=== PATIENT | male | born 1945 | race Caucasian/White ===

== ENCOUNTER 2018-11-24 13:51 | Emergency (ER) | payer OTHER ==
[~2018-11-24] VITALS: Ht 160 cm; Wt 88.0 kg
[~2018-11-24 13:51] MED LIST: AMBIEN10 MG; DEPAKOTE ER250 MG; LEVAQUIN750 MG PO; PYRIDIUM DS200 MG PO; REMERON45 MG; SEPTRA DS TABLE1 TAB PO; SEROQUEL XR300 MG
[2018-11-24] MEDS ORDERED: GLUMETZA500 MG (15:22)
[2018-11-24] MEDS ORDERED: COZAAR25 MG (15:22)
== END 2018-11-24 20:09 | disposition home or self-care (01) ==
LOC: ER 13:51
DX: R41.82 Altered mental status, unspecified (principal); T50.994A Poisoning by other drugs, medicaments and biological substances, undetermined, initial encounter; Y92.89 Other specified places as the place of occurrence of the external cause

== ENCOUNTER 2019-01-10 13:49 | Outpatient (CLI) | payer OTHER ==
[~2019-01-10 13:49] MED LIST changes: +COZAAR25 MG; +GLUMETZA500 MG
== END 2019-01-10 13:59 | disposition home or self-care (01) ==
LOC: RAD 501 13:49
DX: M54.2 Cervicalgia (principal)

== ENCOUNTER 2019-01-28 07:28 | Outpatient (CLI) | payer OTHER | END 2019-01-28 15:00 | disposition home or self-care (01) | LOC: LAB 07:28 | DX: I11.9 Hypertensive heart disease without heart failure (principal); E13.9 Other specified diabetes mellitus without complications; E78.2 Mixed hyperlipidemia ==

== ENCOUNTER 2019-02-02 15:54 | Outpatient (CLI) | payer OTHER | END 2019-02-02 15:59 | disposition home or self-care (01) | LOC: RAD 15:54 | DX: M54.5 Low back pain (principal); M17.12 Unilateral primary osteoarthritis, left knee; M54.2 Cervicalgia ==

== ENCOUNTER 2019-02-03 15:04 | Inpatient (IN) | payer OTHER ==
[~2019-02-03] VITALS: Ht 162.6 cm; Wt 74.8 kg
[2019-02-21] MEDS ORDERED: Intestinex CAP PO (11:17)
[2019-02-21] MEDS ORDERED: BUSPIRONE HCL15 MG PO (11:17)
[2019-02-21] MEDS ORDERED: DEPAKOTE ER500 MG PO (11:17)
[2019-02-21] MEDS ORDERED: LISINOPRIL5 MG PO (11:17)
[2019-02-21] MEDS ORDERED: Seroquel PO (11:17)
[2019-02-21] MEDS ORDERED: MYSOLINE50 MG PO (11:17)
[2019-02-21] MEDS ORDERED: FAMOTIDINE20 MG PO (11:17)
== END 2019-04-06 09:15 | DRG 194 ==
LOC: ER 15:04 → MEDJ 02-04 10:20 → MEDI 02-04 10:20 → MEDJ 02-04 11:46
PROVIDERS: ADMIT Internal Medicine
PROC: 3E0F7GC Introduction of Other Therapeutic Substance into Respiratory Tract, Via Natural or Artificial Opening (ICD-10-PCS; principal; 2019-02-04)
PROC: 4A033R1 Measurement of Arterial Saturation, Peripheral, Percutaneous Approach (ICD-10-PCS; 2019-02-04)
PROC: B020ZZZ Computerized Tomography (CT Scan) of Brain (ICD-10-PCS; 2019-02-04)
PROC: BT4JZZZ Ultrasonography of Kidneys and Bladder (ICD-10-PCS; 2019-02-04)
PROC: B246ZZZ Ultrasonography of Right and Left Heart (ICD-10-PCS; 2019-02-04)
PROC: 8E0ZXY6 Isolation (ICD-10-PCS; 2019-02-04)
PROC: 4A12X4Z Monitoring of Cardiac Electrical Activity, External Approach (ICD-10-PCS; 2019-02-04)
DX: J10.08 Influenza due to other identified influenza virus with other specified pneumonia (principal); M62.82 Rhabdomyolysis; N17.8 Other acute kidney failure; T17.820A Food in other parts of respiratory tract causing asphyxiation, initial encounter; N39.0 Urinary tract infection, site not specified; J91.8 Pleural effusion in other conditions classified elsewhere; J69.0 Pneumonitis due to inhalation of food and vomit; E86.0 Dehydration; E87.8 Other disorders of electrolyte and fluid balance, not elsewhere classified; E11.22 Type 2 diabetes mellitus with diabetic chronic kidney disease; E11.65 Type 2 diabetes mellitus with hyperglycemia; I12.9 Hypertensive chronic kidney disease with stage 1 through stage 4 chronic kidney disease, or unspecified chronic kidney disease; N18.2 Chronic kidney disease, stage 2 (mild); Z79.4 Long term (current) use of insulin; F32.89 Other specified depressive episodes; G20 Parkinson's disease; F02.80 Dementia in other diseases classified elsewhere, unspecified severity, without behavioral disturbance, psychotic disturbance, mood disturbance, and anxiety; I70.0 Atherosclerosis of aorta; G93.89 Other specified disorders of brain; G25.0 Essential tremor; J10.1 Influenza due to other identified influenza virus with other respiratory manifestations

== ENCOUNTER 2019-11-21 12:02 | Inpatient (IN) | payer OTHER ==
[~2019-11-21] VITALS: Ht 165.1 cm; Wt 83.9 kg
[~2019-11-21 12:02] MED LIST changes: +BUSPIRONE HCL15 MG PO; +DEPAKOTE ER500 MG PO; +FAMOTIDINE20 MG PO; +Intestinex CAP PO; +LISINOPRIL5 MG PO; +MYSOLINE50 MG PO; +Seroquel PO
--- NOTE | 2019-11-21 12:17 | NUR ---
SE RECIBE PTE ACOMAPANDO DE FAMILIAR EN AMBULANCIA. PTE CON ABCESO EN ESPALDA. SE MIDEN S/V A PTE Y SE COLOCA EN AREA DE OBSERVACION.
--- NOTE | 2019-11-21 17:18 | NUR ---
PT ALERTA Y ORIENTADO X3 ESFERAS SE LE ORIENTA SOBRE TX Y REFIERE ENTEDER. SE DONATO MUESTRAS DE SAHIL Y VENOPUNCION CON TECNICAS ASEPTICAS. SE ADMINSITRAN MEDICAMENTO ORDENADOS. PT TOL[place]. PT MANEJADO POR MS Miguel/JONATHON.
[2019-12-02] MEDS ORDERED: SINEMET 25-1001 EACH PO (11:50)
[2019-12-02] MEDS ORDERED: Seroquel PO (11:50)
[2019-12-02] MEDS ORDERED: VANCOMYCIN HCL125 MG PO (11:50)
[2019-12-02] MEDS ORDERED: POM (MEDICAMENTO EN PO (11:50)
[2019-12-02] MEDS ORDERED: DEPAKOTE ER500 MG PO (11:50)
[2019-12-02] MEDS ORDERED: MONODOX100 MG PO (11:50)
[2019-12-02] MEDS ORDERED: MYSOLINE50 MG PO (11:50)
[2019-12-02] MEDS ORDERED: INTESTINEX680 M1 PO (11:50)
== END 2019-12-02 18:51 | DRG 580 ==
LOC: ER 12:02 → SEC-K 17:31 → MEDJ 17:31
PROVIDERS: ADMIT Internal Medicine
PROC: 0W9K00Z Drainage of Upper Back with Drainage Device, Open Approach (ICD-10-PCS; 2019-11-21)
PROC: 8E0ZXY6 Isolation (ICD-10-PCS; 2019-11-22)
PROC: 0J970ZZ Drainage of Back Subcutaneous Tissue and Fascia, Open Approach (ICD-10-PCS; principal; 2019-11-30)
DX: L03.312 Cellulitis of back [any part except buttock and flank] (principal); F32.0 Major depressive disorder, single episode, mild; L02.212 Cutaneous abscess of back [any part, except buttock and flank]; B95.61 Methicillin susceptible Staphylococcus aureus infection as the cause of diseases classified elsewhere; G20 Parkinson's disease; F02.80 Dementia in other diseases classified elsewhere, unspecified severity, without behavioral disturbance, psychotic disturbance, mood disturbance, and anxiety; E11.9 Type 2 diabetes mellitus without complications; Z79.4 Long term (current) use of insulin